=== PATIENT | female | born 1985 | race Caucasian/White ===

== ENCOUNTER 2019-12-17 14:20 | Emergency (ER) | payer BC ==
[2019-12-17 14:27] VITALS: RESP 18
--- NOTE | 2019-12-17 15:00 | ED ---
Female Urogenital HPI - General Chief complaint: Vaginal Bleeding Stated complaint: 10 wks preg/spotting Time Seen by Provider: 12/17/19 14:30 Source: patient, RN notes reviewed, old records reviewed Mode of arrival: ambulatory - History of Present Illness Initial comments: Patient is a 34-year-old female proximally 10 weeks stating that she has a history of female with miscarriage last year. She presents today for vaginal bleeding throughout the past week. She states that it started initially as a brown white discharge after intercourse this week. She states that over the past 24 hours it's been increasingly heavy and she stated that she could not feel it. She reports that she is visiting her parents [facility] and states that her SERVICES COORDINATOR is down state she is from. Patient states that she has no cramping at this time or pain. Last Menstrual Period: 10/09/19 - Related Data Allergies Allergy/AdvReac Type Severity Reaction Status Date / Time amoxicillin Allergy Rash/Hives Verified 12/17/19 14:27 Review of Systems ROS Statement: Those systems with pertinent positive or pertinent negative responses have been documented in the HPI. ROS Other: All systems not noted in ROS Statement are negative. Past Medical History Past Medical History: No Reported History Additional Past Surgical History / Comment(s): eye Past Psychological History: No Psychological Hx Reported Smoking Status: Never smoker Past Alcohol Use History: Occasional Past Drug Use History: None Reported General Exam General appearance: alert, in no apparent distress Head exam: Present: atraumatic, normocephalic, normal inspection Eye exam: Present: normal appearance, PERRL, EOMI. Absent: scleral icterus, conjunctival injection, periorbital swelling ENT exam: Present: normal exam, mucous membranes moist Neck exam: Present: normal inspection. Absent: tenderness, meningismus, lymphadenopathy Respiratory exam: Present: normal lung sounds bilaterally. Absent: respiratory distress, wheezes, rales, rhonchi, stridor Cardiovascular Exam: Present: regular rate, normal rhythm, normal heart sounds. Absent: systolic murmur, diastolic murmur, rubs, gallop, clicks GI/Abdominal exam: Present: soft, normal bowel sounds. Absent: distended, tenderness, guarding, rebound, rigid External exam: Present: normal external exam Speculum exam: Present: vaginal bleeding (some clots at cervical os). Absent: normal speculum exam, vaginal discharge By manual exam: Present: normal by manual exam. Absent: cervical motion tenderness Extremities exam: Present: normal inspection, full ROM, normal capillary refill. Absent: tenderness, pedal edema, joint swelling, calf tenderness Back exam: Present: normal inspection Neurological exam: Present: alert, oriented X3, CN II-XII intact Psychiatric exam: Present: normal affect Course Vital Signs 12/17/19 12/17/19 14:24 16:38 Temperature 99.0 F 98.9 F Pulse Rate 113 H 86 Respiratory 18 18 Rate Blood Pressure 132/75 136/72 O2 Sat by Pulse 100 100 Oximetry Medical Decision Making - Medical Decision Making 34-year-old female with a history of miscarriage last year presents emergency department today complaining of vaginal bleeding at 10 weeks . She had ultrasound showed viable IUP 2 weeks ago. She is here visiting from [facility]. At this time patient's Rh+. HCG level is 30,000. Patient does have some clots evidence of mild to moderate vaginal bleeding on pelvic exam. No adnexal tenderness. She is no abdominal tenderness. Ultrasound shows no viable IUP at this time. I discussed without heart rate dissection this is concern for miscarriage. Discussed Patient is follow-up with her SERVICES COORDINATOR. Discussed she has any further heavy bleeding feeling weak or lightheaded she cannot return for reevaluation. Patient is agreeable treatment plan. I did leave a message with the on-call SERVICES COORDINATOR Dr. Salazar for follow up. - Lab Data Result diagrams: 12/17/19 14:55 Lab Results 12/17/19 12/17/19 12/17/19 Range/Units 14:55 14:55 14:55 WBC (3.8-10.6) k/uL RBC (3.80-5.40) m/uL Hgb (11.4-16.0) gm/dL Hct (34.0-46.0) % MCV (80.0-100.0) fL MCH (25.0-35.0) pg MCHC (31.0-37.0) g/dL RDW (11.5-15.5) % Plt Count (150-450) k/uL Neutrophils % % Lymphocytes % % Monocytes % % Eosinophils % % Basophils % % Neutrophils # (1.3-7.7) k/uL Lymphocytes # (1.0-4.8) k/uL Monocytes # (0-1.0) k/uL Eosinophils # (0-0.7) k/uL Basophils # (0-0.2) k/uL HCG, Quant mIU/mL Urine Color Yellow Urine Appearance Clear (Clear) Urine pH 6.0 (5.0-8.0) Ur Specific [place] 1.018 (1.001-1.035) Urine Protein Negative (Negative) Urine Glucose (UA) Negative (Negative) Urine Ketones Negative (Negative) Urine Blood Moderate H (Negative) Urine Nitrite Negative (Negative) Urine Bilirubin Negative (Negative) Urine Urobilinogen <2.0 (<2.0) mg/dL Ur Leukocyte Esterase Negative (Negative) Urine RBC 15 H (0-5) /hpf Urine WBC 3 (0-5) /hpf Ur Squamous Epith Cells <1 (0-4) /hpf Urine Bacteria Rare H (None) /hpf Hyaline Casts 8 H (0-2) /lpf Urine Mucus Few H (None) /hpf Urine HCG, Qual Detected (Not Detectd) Trichomonas Ag (Rapid) (Negative) Blood Type O Positive Blood Type Recheck No Previous Record Bld Type Recheck Status ABR ONLY 12/17/19 12/17/19 12/17/19 Range/Units 14:55 14:55 16:05 WBC 6.4 (3.8-10.6) k/uL RBC 4.46 (3.80-5.40) m/uL Hgb 13.3 (11.4-16.0) gm/dL Hct 39.3 (34.0-46.0) % MCV 88.2 (80.0-100.0) fL MCH 29.8 (25.0-35.0) pg MCHC 33.8 (31.0-37.0) g/dL RDW 13.3 (11.5-15.5) % Plt Count 239 (150-450) k/uL Neutrophils % 63 % Lymphocytes % 24 % Monocytes % 6 % Eosinophils % 4 % Basophils % 1 % Neutrophils # 4.0 (1.3-7.7) k/uL Lymphocytes # 1.5 (1.0-4.8) k/uL Monocytes # 0.4 (0-1.0) k/uL Eosinophils # 0.3 (0-0.7) k/uL Basophils # 0.0 (0-0.2) k/uL HCG, Quant 58491.2 mIU/mL Urine Color Urine Appearance (Clear) Urine pH (5.0-8.0) Ur Specific [place] (1.001-1.035) Urine Protein (Negative) Urine Glucose (UA) (Negative) Urine Ketones (Negative) Urine Blood (Negative) Urine Nitrite (Negative) Urine Bilirubin (Negative) Urine Urobilinogen (<2.0) mg/dL Ur Leukocyte Esterase (Negative) Urine RBC (0-5) /hpf Urine WBC (0-5) /hpf Ur Squamous Epith Cells (0-4) /hpf Urine Bacteria (None) /hpf Hyaline Casts (0-2) /lpf Urine Mucus (None) /hpf Urine HCG, Qual (Not Detectd) Trichomonas Ag (Rapid) Negative (Negative) Blood Type Blood Type Recheck Bld Type Recheck Status - Radiology Data Radiology results: report reviewed Ultrasound shows fluid filled structure with an endometrium. No definite pole or yolk sac. Differential diagnosis is missed normal too early to detect or ectopic . Correlate clinically with serial hCG and pelvic ultrasound is warranted. Disposition Clinical Impression: Threatened miscarriage Disposition: HOME SELF-CARE Condition: Good Instructions (If sedation given, give patient instructions): Miscarriage (ED) Additional Instructions: Follow-up with her SERVICES COORDINATOR within the next week. If there is any significant heavy bleeding or feeling weak or lightheaded or severe pain please return to the ER for reevaluation. Is patient prescribed a controlled substance at d/c from ED?: No Referrals: Nonstaff,Physician [REFERRING] - 1-2 days Time of Disposition: 16:13
[2019-12-17 15:05] LABS: Basophils % (A) 1 %; Eosinophils # (A) 0.3 k/uL (0-0.7); Eosinophils % (A) 4 %; HCT 39.3 % (34.0-46.0); HGB 13.3 gm/dL (11.4-16.0); Lymphocytes # (A) 1.5 k/uL (1.0-4.8); Lymphocytes % (A) 24 %; MCH 29.8 pg (25.0-35.0); MCHC 33.8 g/dL (31.0-37.0); MCV 88.2 fL (80.0-100.0); Mean Platelet Volume 8.8; Monocytes # (A) 0.4 k/uL (0-1.0); Monocytes % (A) 6 %; Neutrophils % (A) 63 %; Platelet Count 239 k/uL (150-450); RBC 4.46 m/uL (3.80-5.40); RDW 13.3 % (11.5-15.5); WBC 6.4 k/uL (3.8-10.6)
[2019-12-17 15:10] LABS: Appearance,Urine Clear (Clear); Bacteria,Urine Rare /hpf; Bilirubin,Urine Negative (Negative); Blood,Urine Moderate (Negative); Color,Urine Yellow; Glucose,Urine (UA) Negative (Negative); Hyaline Casts,Urine 8 /lpf (0-2); Ketones,Urine Negative (Negative); Leukocyte Esterase,Urine Negative (Negative); Mucus,Urine Few /hpf; Nitrite,Urine Negative (Negative); Protein,Urine Negative (Negative); RBC,Urine 15 /hpf (0-5); Specific Gravity,Urine 1.018 (1.001-1.035); Squamous Epithelial Cell,Urine <1 /hpf (0-4); Urobilinogen,Urine <2.0 mg/dL (<2.0); WBC,Urine 3 /hpf (0-5)
--- NOTE | 2019-12-17 15:36 | US ---
EXAMINATION TYPE: Transabdominal DATE OF EXAM: 12/17/2019 3:20 PM COMPARISON: NONE CLINICAL HISTORY: 10 weeks spotting. brown spotting on and off for a week EXAM PERFORMED: OBTA EXAM MEASUREMENTS: GESTATIONAL AGE / DATING Physician Established: Not yet established Dates by LMP: (9 weeks/6 days) EDC: 07/15/2020 Dates by First Scan: No previous this is first scan here Dates by Current Scan for: No IUP seen at this time MATERNAL ANATOMY Uterus: 8.4 x 7.0 x 6.8cm Right Ovary: 2.8 x 2.4 x 2.3cm Left Ovary: 3.0 x 1.6 x 1.6cm Post CDS / Adnexa: wnl Presence of free fluid: no Presence of corpus luteal cyst: yes, right ovary = 1.7cm Presence of subchorionic bleed: no GESTATION / SURVEY CRL: not seen at today's exam MSD: 2.1 (7 weeks/2 days) IUP: No IUP seen at this time Date of LMP: 10/09/2019 Beta HcG (if available): not available *Patient stated she had ultrasound a couple weeks ago and saw fetus with heart beat at that time. Emp ty gestational sac seen today measuring 2 weeks under dates. IMPRESSION: 1. There is a fluid-filled structure within the endometrium. There is no definite pole or yolk sac. Differential diagnosis would include missed , normal too early to detect, or e ctopic . Correlate clinically with serial beta hCG and pelvic ultrasound as clinically matt padilla.
[2019-12-17 16:39] VITALS: BP 136/72; PULSE 86; TEMP 98.9
[2019-12-20 15:56] LABS: C. trachomatis,PCR Negative (Neg,Equiv); Chlamydia trachomatis Source Vagina; N. gonorrhoeae,PCR Negative (Neg,Equiv); Neisseria Source Vagina
== END 2019-12-17 16:38 | disposition home or self-care (01) ==
LOC: EC 14:20
DX: O20.0 Threatened abortion (principal); Z3A.10 10 weeks gestation of pregnancy; Z88.0 Allergy status to penicillin
CPT/HCPCS: 36415; 76801; 81001; 81025; 84702; 85025; 86900; 86901; 87491; 87591; 87808; 99284